=== PATIENT | female | born 1960 | race Caucasian/White ===

== ENCOUNTER 2019-09-28 07:42 | Day surgery (SDC) | payer MEDICAID ==
[~2019-09-28 07:42] MED LIST: Lactated Ringers 1,000 ML IV SCH; Sodium Chloride 0.9% 10 ML Syringe FLUSH PRN
[2019-09-28] MEDS ORDERED: Citric Acid/Sodium Citrate Solution 30 ML Cup PO ONE (08:19)
[2019-09-28] MEDS ORDERED: fentaNYL 100 MCG/2 ML SDV ONE (08:30)
[2019-09-28] MEDS ORDERED: Propofol 200 MG/20 ML SDV ONE (08:30)
--- NOTE | 2019-09-28 11:44 | OR ---
PREOPERATIVE DIAGNOSES: 1. Dysphagia. 2. Symptoms of gastroesophageal reflux. POSTOPERATIVE DIAGNOSES: 1. Hemorrhagic gastritis. 2. 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 ANESTHESIA: MAC anesthesia. COMPLICATIONS: None. BLOOD LOSS: Minimal. FINDINGS: 1. Normal duodenum up to the third portion. 2. Hemorrhagic enteritis, biopsied and sent to H. pylori. 3. 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 There was a 1.5 cm tongue of salmon-colored tissue extending proximally from the Z-line. 4. Hill grade II esophageal hiatus. 5. No evidence of hiatal hernia. INDICATION FOR PROCEDURE: Ms. Malone is a 58-year-old female who has been having for few months now a sensation of food getting stuck when she swallows. She has some associated reflux symptoms and nausea. No vomiting. No bloody or dark black stools. No weight loss. No lymphadenopathy and no night sweats. She has been on omeprazole for about 2 months which has improved her symptoms. DETAILS OF PROCEDURE: After informed consent was obtained, the patient was brought to the operating room. MAC anesthesia was induced by Anesthesia colleagues. She was placed in the left side. Bite block was then placed. The endoscope was introduced into her mouth down her esophagus and into her stomach. The duodenum was examined up to the third portion and was unremarkable. She had hemorrhagic enteritis which was biopsied on retroflexed view. She had Hill grade II esophageal hiatus. There were no other abnormalities of the stomach. She did not have evidence of hiatal hernia. The Z-line was at 40 cm. There was a 1.5 cm tongue of salmon-colored tissue distally extending up from the Z-line. This was biopsied. Given her dysphagia, we also did random esophageal biopsies, but the rest of the esophagus was grossly unremarkable. She tolerated the procedure well. I will send her pathology report in the mail once I have received it. I recommended that she discuss increasing her omeprazole dose with her primary care physician. RKM: 09/28/2019 10:40:53 MODL: 09/28/2019 11:22:20 /[id number]
== END 2019-09-28 12:20 | disposition home or self-care (01) ==
LOC: VM.SDS 07:42
PROVIDERS: ATTEND Student in an Organized Health Care Education/Training Program
DX: K29.71 Gastritis, unspecified, with bleeding (principal); K22.8 Other specified diseases of esophagus; K21.0 Gastro-esophageal reflux disease with esophagitis; J45.20 Mild intermittent asthma, uncomplicated; F41.1 Generalized anxiety disorder; F17.210 Nicotine dependence, cigarettes, uncomplicated; Z79.899 Other long term (current) drug therapy
CPT/HCPCS: 43239; A9270-GY; J2704; J3010; J7120

== ENCOUNTER 2023-01-30 06:28 | Day surgery (SDC) | payer MEDICAID ==
[2023-01-30] MEDS: Lactated Ringers 1,000 ML IV SCH (06:57)
[2023-01-30] MEDS ORDERED: Sodium Chloride 0.9% 10 ML Syringe FLUSH PRN (07:00)
[2023-01-30] MEDS ORDERED: Midazolam 1 MG/ML 2 ML SDV ONE (07:33)
[2023-01-30] MEDS ORDERED: fentaNYL 100 MCG/2 ML SDV ONE (07:33)
[2023-01-30] MEDS ORDERED: Propofol 200 MG/20 ML SDV ONE (07:33)
== END 2023-01-30 09:42 | disposition home or self-care (01) ==
LOC: VM.SDS 06:28
PROVIDERS: ATTEND Student in an Organized Health Care Education/Training Program
DX: Z12.11 Encounter for screening for malignant neoplasm of colon (principal); D12.2 Benign neoplasm of ascending colon; D12.3 Benign neoplasm of transverse colon; D12.4 Benign neoplasm of descending colon; D12.8 Benign neoplasm of rectum; K21.9 Gastro-esophageal reflux disease without esophagitis; F41.1 Generalized anxiety disorder; R53.83 Other fatigue; G47.00 Insomnia, unspecified; R07.89 Other chest pain; R82.998 Other abnormal findings in urine; F12.90 Cannabis use, unspecified, uncomplicated; F43.10 Post-traumatic stress disorder, unspecified; J45.909 Unspecified asthma, uncomplicated; Z87.891 Personal history of nicotine dependence; Z79.899 Other long term (current) drug therapy
CPT/HCPCS: J2250; J2704; J3010; J7120

== ENCOUNTER 2023-09-15 11:04 | Emergency (ER) | payer MEDICAID ==
[2023-09-15] MEDS ORDERED: Ondansetron 4 MG/2 ML SDV IVPUSH ONE (11:22)
[2023-09-15] MEDS ORDERED: Sodium Chloride 0.9% 1,000 ML IV ONE (11:22)
[2023-09-15 11:35] LABS: BASOPHILS PERCENT AUTO 0.9 % (0.2-1.2); EOSINOPHILS PERCENT AUTO 0.5 % (0.0-4.0); HEMATOCRIT 41.9 % (33.0-47.0); HEMOGLOBIN 14.1 g/dL (12.0-16.0); IMMATURE GRAN ABSOLUTE AUTO 0.02 x10^3/uL (0.00-0.07); LYMPHOCYTES ABSOLUTE AUTO 0.9 x10^3/uL (1.0-4.8); LYMPHOCYTES PERCENT AUTO 21.5 % (25.0-50.0); MEAN CORPUSCULAR HEMOGLOBIN 31.5 pg (26.0-32.0); MEAN CORPUSCULAR HGB CONC 33.7 g/dL (32.0-36.0); MEAN CORPUSCULAR VOLUME 93.7 fL (78.0-93.0); MONOCYTES ABSOLUTE AUTO 0.7 x10^3/uL (0.0-0.8); MONOCYTES PERCENT AUTO 16.9 % (2.0-11.0); NEUTROPHILS ABSOLUTE AUTO 2.6 x10^3/uL (1.8-7.7); NEUTROPHILS PERCENT AUTO 59.7 % (50.0-80.0); PLATELET COUNT,PLT 271 x10^3/uL (130-400); RED BLOOD CELL COUNT 4.47 x10^6/uL (4.00-5.50); WHITE BLOOD CELL COUNT,WBC 4.3 x10^3/uL (4.0-10.0)
[2023-09-15] MEDS ORDERED: Pantoprazole 40 MG Vial IVPUSH ONE (11:38)
[2023-09-15 11:49] LABS: A/G RATIO 1.09; ALANINE AMINOTRANSFERASE,ALT 35 U/L (14-59); ALBUMIN 3.8 g/dL (3.4-5.0); ALKALINE PHOSPHATASE 78 U/L (46-116); ANION GAP 17.9 mmol/L (5-15); ASPARTATE AMNIOTRANSFERASE,AST 35 U/L (15-37); BILIRUBIN TOTAL 0.2 mg/dL (0.2-1.0); BLOOD UREA NITROGEN,BUN 14 mg/dL (7-18); C-REACTIVE PROTEIN 0.65 mg/dL (<=0.50); CALCIUM 9.3 mg/dL (8.5-10.1); CARBON DIOXIDE,CO2 26 mmol/L (21-32); CHLORIDE,CL 100 mmol/L (98-107); CREATININE 0.9 mg/dL (0.55-1.02); ESTIMATED GFR 72 mL/min (>=60); GLUCOSE RANDOM 116 mg/dL (70-99); LIPASE 45 U/L (19-71); MAGNESIUM 1.9 mg/dL (1.8-2.4); POTASSIUM,K 3.9 mmol/L (3.5-5.1); PROTEIN TOTAL,TP 7.3 g/dL (6.4-8.2); SODIUM,NA 140 mmol/L (136-145)
[2023-09-15 12:13] LABS: CORONAVIRUS COVID-19 NAA NEGATIVE (NEGATIVE)
[2023-09-15 12:14] LABS: INFLUENZA B NAA NEGATIVE (NEGATIVE); RESPIRATORY SYNCYTIAL VIR NAA NEGATIVE (NEGATIVE)
[2023-09-16 14:55] LABS: INFLUENZA A NAA POSITIVE (NEGATIVE)
== END 2023-09-15 12:35 | disposition home or self-care (01) ==
LOC: VM.ED 11:04
DX: J10.1 Influenza due to other identified influenza virus with other respiratory manifestations (principal); J45.909 Unspecified asthma, uncomplicated; K21.9 Gastro-esophageal reflux disease without esophagitis; Z87.891 Personal history of nicotine dependence; Z79.899 Other long term (current) drug therapy; Z20.822 Contact with and (suspected) exposure to COVID-19
CPT/HCPCS: 0241U; 80053; 82271; 83690; 83735; 85025; 86140; 96361; 96374; 96375; 99284; C9113; J2405; J7030